=== PATIENT | female | born 2005 | race Caucasian/White ===

== ENCOUNTER → 2024-08-14 16:04 | Outpatient (REF) | payer BC, SELFPAY ==
[2024-08-14 17:14] LABS: Blood Urea Nitrogen 12 mg/dl (7-17); Calcium 9.7 mg/dl (8.4-10.2); Carbon Dioxide 27 mmol/L (22-30); Chloride 106 mmol/L (98-107); Glucose 88 mg/dl (70-99); Magnesium 1.9 mg/dl (1.6-2.3); Potassium 4.1 mmol/L (3.5-5.1); Sodium 138 mmol/L (135-145); eGFR > 60.00
== END ==
LOC: REG 16:04
PROVIDERS: ATTENDING PHYSICIAN Pediatrics; FAMILY PHYSICIAN Internal Medicine
DX: E87.1 Hypo-osmolality and hyponatremia (principal)
CPT/HCPCS: 80048; 83735; 84100